=== PATIENT | female | born 1985 | race Two or more races ===

== ENCOUNTER 2017-01-01 17:06 | Emergency (ER) | payer OTHER ==
[2017-01-01 17:20] VITALS: TEMP 99
--- NOTE | 2017-01-01 17:38 | EDPHY ---
H & P Stated Complaint: Sent by paper core machine operator for eval blurry vision R eye x 2 wks (see opth report) Time Seen by Provider: 01/01/17 17:38 - Personal History LMP (Females 10-55): Extended Cycle BCP/Inj Current Tetanus Diphtheria and Acellular Pertussis (TDAP): Yes - Medical/Surgical History Other PMH: healthy - Social History Smoking Status: Never smoked Constitutional: Initial Vital Signs Temperature (C) 37.2 C 01/01/17 17:15 Heart Rate 77 01/01/17 17:15 Respiratory Rate 16 01/01/17 17:15 Blood Pressure 142/93 H 01/01/17 17:15 O2 Sat (%) 99 01/01/17 17:15 O2 Delivery Mode Room Air Allergies/Adverse Reactions: No Known Allergies Allergy (Verified 01/01/17 17:17) Home Medications: Medication Instructions Recorded Bc Implant 01/01/17 Medical Decision Making - Diagnostics Imaging Results: Imaging Impressions Brain MRI 01/01/17 17:56 Impression: Normal MRI of the brain without contrast. Results called to Dr. Burk at 7:15 PM. Head MRA 01/01/17 17:58 Impression: 1. Negative MR venography of the dural venous sinuses for thrombosis. 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 Results called to Dr. Jules Burk. Head MRA 01/01/17 19:17 Impression: 1. Normal MR angiography of the [place]. Results called to Dr. Jules Burk at 7:40 PM. Imaging: Discussed imaging studies w/ physically impaired teacher Radiologist ED Course/Re-evaluation: CHIEF COMPLAINT: Blurred vision HISTORY OF PRESENT ILLNESS: This patient is a 31 year old female complaining of blurred vision in her right eye for the last two weeks. She notes inferior visual field loss in and blurred vision in right eye. Her symptoms have not gotten better or worse since onset. Her vision with both eyes sufficient, but quite decreased due to blurriness in the right. She was evaluated today by an paper core machine operator today at [facility], who found no obvious ocular etiology. The paper core machine operator referred her to to the emergency department for an MRI for further evaluation. She endorses a minor pressure sensation in her right eye. She has no symptoms in left eye. She denies any recent illness or trauma. REVIEW OF SYSTEMS: A 10 point review of systems was performed and is negative with the exception of the elements mentioned in the history of present illness. PHYSICAL EXAM: Reviewed documentation from [facility]. The patient had a complete eye exam by an paper core machine operator prior to presentation at the emergency department today. Past medical history: Nexplanon implant Past surgical history: Noncontributory Family history: Noncontributory. Social history: Lives in [place]. Works at [employer]. DIAGNOSTICS/PROCEDURES/CRITICAL CARE TIME: Includes but not limited to corneal abrasion, optic nerve dysfunction, retinal infarction, thrombosed retinal vein, thrombosed retinal artery. DIFFERENTIAL DIAGNOSIS: MEDICAL DECISION MAKIN31 year old female presents with two week history of inferior visual field cut and blurred vision in her right eye. Eye exam completed earlier today at [facility]. She does not have evidence on prior exam of retinal infarct. Plan for MRI as requested by paper core machine operator. 17:[address] Frazier, radiologist. He recommends MRI brain with and without contrast, MRV head, MRA head. 19:[address] Frazier, radiologist. Normal MRI of the brain. Normal MRV. 19:[address] Frazier, radiologist. Normal MR angiography of the [place]. 20:[address] Huertas, motor assembly supervisor joint terminal attack controller. He will see the patient Wednesday. Etiology of the patient's symptoms unknown at this point. MR imaging negative for acute processes. Plan to discharge home in good condition. The patient will follow up with Dr. Huertas as discussed above. Return precautions discussed. The patient is comfortable with this plan. Departure - Departure Disposition: Home, Routine, Self-Care Clinical Impression: Blurred vision, right eye, Visual field constriction of right eye Condition: Good Instructions: Blurred Vision (ED) Additional Instructions: 1. Follow up with ophthalmology next week for continued evaluation of your blurred vision. We have referred you to Dr. Huertas, our motor assembly supervisor joint terminal attack controller. Call on Wednesday for an appointment Wednesday. Let his office know I spoke to Dr. Huertas this evening. 2. Return to the emergency department for further changes in your vision, severe headache, or other worsening of condition. Referrals: Danae Nguyen DO [Primary Care Provider] - As per Instructions Silvestre Huertas MD [Medical Doctor] - As per Instructions
[2017-01-01] MEDS ORDERED: GADOBUTROL 10 ML VIAL IVP ONE (18:42)
[2017-01-01 19:42] VITALS: BP 128/77; PULSE 72; RESP 14; O2SAT 98
== END 2017-01-01 20:19 | disposition home or self-care (01) ==
DX: H53.8 Other visual disturbances (principal); H53.40 Unspecified visual field defects
CPT/HCPCS: A9585

== ENCOUNTER → 2017-01-07 | Outpatient (CLI) | payer OTHER ==
[~2017-01-07] MED LIST: GADOBUTROL 10 ML VIAL IVP ONE
== END ==
LOC: FIMAGING 16:08
PROVIDERS: ATTEND Ophthalmology
DX: H53.11 Day blindness (principal)
CPT/HCPCS: A9585